=== PATIENT | male | born 1940 | race Caucasian/White ===

== ENCOUNTER 2017-02-09 08:08 | Emergency (ER) | payer OTHER ==
[~2017-02-09] VITALS: Wt 72.7 kg
[2017-02-09] MEDS ORDERED: SOD CHLORIDE 0.9% 1,000 ML IV STA (08:17)
[2017-02-09 08:45] LABS: ADD SCAN DIFF NO
[2017-02-09 08:48] LABS: ABNORMAL IP MESSAGE 1; BASOPHIL # 0.1 10^3/ul (0.0-0.1); BASOPHILS % 0.6 % (0.0-2.0); EOSINOPHILS # 0.5 10^3/ul (0.0-0.5); EOSINOPHILS % 3.6 % (0.0-7.0); HEMATOCRIT 33.1 % (42.0-52.0); LYMPHOCYTES # 0.9 10^3/ul (0.8-2.9); LYMPHOCYTES % 6.2 % (15.0-51.0); MEAN CORPUSCULAR HEMOGLOBIN 30.5 pg (29.0-33.0); MEAN CORPUSCULAR HGB CONC 33.2 g/dl (32.0-37.0); MEAN CORPUSCULAR VOLUME 91.7 fl (82.0-101.0); MEAN PLATELET VOLUME 9.4 fl (7.4-10.4); MONOCYTE # 1.8 10^3/ul (0.3-0.9); MONOCYTES % 12.7 % (0.0-11.0); NEUTROPHIL # 10.8 10^3/ul (1.6-7.5); NEUTROPHILS % 76.3 % (39.0-77.0); PLATELET COUNT 561 10^3/UL (140-415); RED BLOOD COUNT 3.61 10^6/ul (4.70-6.10); RED CELL DISTRIBUTION WIDTH 11.4 % (11.5-14.5); WHITE BLOOD COUNT 14.1 10^3/ul (4.8-10.8)
[2017-02-09 08:57] LABS: POTASSIUM 3.6 mmol/L (3.5-5.1)
[2017-02-09 08:59] LABS: CREATININE 1.69 mg/dl (0.61-1.24)
--- NOTE | 2017-02-09 09:06 | RADRPT ---
PROCEDURE: XR Chest. CLINICAL INDICATION: Syncope. TECHNIQUE: Single frontal view of the chest was obtained COMPARISON: No. FINDINGS: The soft tissues are normal. The bony elements are normal. The cardiomediastinal silhouette, pulmo nary vasculature and hilar structures are normal. There is a left-sided aorta. The lungs are clear. The costophrenic angles are normal. IMPRESSION: 1. Normal chest x-ray. RPTAT:AAJJ Physician Elliot Date Time Electronically viewed and signed by Jefferson Gardner Physician on 02/09/2017 09:06 /
--- NOTE | 2017-02-09 09:08 | RADRPT ---
PROCEDURE: XR left ribs . CLINICAL INDICATION: Syncope with chest pain. TECHNIQUE: AP and oblique views of the left ribs were obtained. COMPARISON: No. FINDINGS: The ribs are intact. No pulmonary contusion pneumothorax or hemothorax is identified. There are os teophytes in the thoracic spine and vascular calcifications in the aortic arch. The other bony [place] ents are unremarkable. Cone down views of the lower ribs were not performed. IMPRESSION: 1. No acute rib fracture, pulmonary contusion pneumothorax or hemothorax is identified. 2. Limited study as cone down views of the lower left ribs were not included in the exam. 3. Spondylosis of the thoracic spine. 4. Atherosclerotic vascular disease. RPTAT:AAJJ Physician Elliot Date Time Electronically viewed and signed by Physician Elliot on 02/09/2017 09:08 /
[2017-02-09 09:09] LABS: INR 1.12; PROTIME 14.4 Sec (12.2-14.2); PT RATIO 1.1
[2017-02-09 09:10] LABS: PARTIAL THROMBOPLASTIN TIME 31.2 Sec (25.0-35.0)
[2017-02-09 09:12] LABS: TROPONIN-I 0.031 ng/ml (0.00-0.12)
--- NOTE | 2017-02-09 09:43 | RADRPT ---
PROCEDURE: CT brain without contrast CLINICAL INDICATION: Syncope TECHNIQUE: CT of the brain without contrast performed on a multidetector CT scanner, with multiplan ar reformats. One or more of the following dose reduction techniques were used: Automated exposure control, adjustment in mA and / or kV according to patient size, use of iterative reconstructive roxy hnique. CTDIvol = 45 mGy; DLP = 720 mGy-cm. COMPARISON: None available FINDINGS: No acute intracranial hemorrhage is identified. No extra-axial fluid collection is seen. There is no mass effect. No midline shift is identified. Ventricles and sulci are mildly enlarged compatible with volume loss. There are mild areas of hypodensity in the periventricular - deep white matter which are nonspecific but suggestive of chronic small vessel ischemic changes. Jaquez-white differentiation is preserved. Atherosclerotic calcifications of the intracranial internal carotid arteries are noted. Osseous structures are unremarkable. Mastoid air cells and imaged paranasal sinuses grossly clear. IMPRESSION: 1. No acute intracranial pathology identified. 2. Mild volume loss, with mild chronic small vessel ischemic changes. RPTAT: VV .Edmar Bach MD, MD Date Time Electronically viewed and signed by .Edmar Bach MD, MD on 02/09/2017 09:43 .O/
[2017-02-09 09:58] LABS: ADD UMIC YES; URINE BILIRUBIN (Dip) 1+ (NEGATIVE); URINE BLOOD (Dip) TRACE (NEGATIVE); URINE COLOR YELLOW (YELLOW); URINE GLUCOSE (Dip) NEGATIVE (NEGATIVE); URINE KETONES (Dip) NEGATIVE (NEGATIVE); URINE LEUKOCYTE ESTERASE (Dip) NEGATIVE (NEGATIVE); URINE NITRITE (Dip) NEGATIVE (NEGATIVE); URINE TOTAL PROTEIN (Dip) 1+ (NEGATIVE); URINE UROBILINOGEN (Dip) 1.0 E.U./dL (0.1-1.0)
--- NOTE | 2017-02-09 10:13 | ERA ---
ER Documentation Chief Complaint Date/Time DATE: 02/09/17 TIME: 10:11 Chief Complaint bib als syncopal episode HPI Male with hypertension who presents with syncope. The patient says that he was making some coffee and then the next thing he knew he woke up on the floor. He does not remember what happened. He was brought in by ambulance. He has left- sided chest wall pain. His blood pressure was 90/50 by paramedics and his blood sugar was 158. Upon review of old medical records this is the patient's first visit to the emergency department. The patient is a [employer] member. ROS All systems reviewed and are negative except as per history of present illness. Medications Home Meds Reported Medications Lisinopril* (Lisinopril*) 5 Mg Tablet, 5 MG PO BID, #30 TAB 02/09/17 Hydrochlorothiazide* (Hydrochlorothiazide*) 25 Mg Tab, 25 MG PO DAILY, #30 TAB 02/09/17 Allergies Allergies: Coded Allergies: aspirin (Verified Allergy, Unknown, per pt. blood in stool, 02/09/17) PMhx/Soc Medical and Surgical Hx: pt denies Surgical Hx Hx Cardiac Disorders: Yes (htn) Hx Alcohol Use: No Hx Substance Use: No Hx Tobacco Use: No Smoking Status: Unknown if ever smoked FmHx Family History: No diabetes Physical Exam Vitals Vital Signs Date Time Temp Pulse Resp B/P Pulse Ox O2 Delivery O2 Flow Rate FiO2 02/09/17 11:25 98.0 84 20 104/58 99 Room Air 02/09/17 11:04 98.7 82 22 95/57 99 Room Air 02/09/17 10:21 99 Room Air 02/09/17 09:57 98.9 86 20 92/54 94 Room Air 02/09/17 08:35 98.0 93 21 95/64 97 Physical Exam Const: No acute distress Head: Atraumatic Eyes: Normal Conjunctiva ENT: Normal External Ears, Nose and Mouth. Neck: Full range of motion..~ No meningismus. Resp: Clear to auscultation bilaterally Cardio: Regular rate and rhythm, no murmurs, left-sided chest wall pain with palpation without crepitus noted Abd: Soft, non tender, non distended. Normal bowel sounds Skin: Pale Back: No midline or flank tenderness Ext: No cyanosis, or edema Neur: Awake and alert Psych: Normal Mood and Affect Result Diagram: 02/09/17 0830 02/09/17 0830 Results 24 hrs Laboratory Tests Test 02/09/17 08:30 02/09/17 09:40 Activated Partial Thromboplast Time 31.2Sec Anion Gap 16 Basophils # 0.110^3/ul Basophils % 0.6% Blood Urea Nitrogen 52mg/dl Calcium Level 9.0mg/dl Carbon Dioxide Level 29mmol/L Chloride Level 97mmol/L Creatinine 1.69mg/dl Eosinophils # 0.510^3/ul Eosinophils % 3.6% Glucose Level 138mg/dl Hematocrit 33.1% Hemoglobin 11.0g/dl INR International Normalized Ratio 1.12 Lymphocytes # 0.910^3/ul Lymphocytes % 6.2% Mean Corpuscular Hemoglobin 30.5pg Mean Corpuscular Hemoglobin Concent 33.2g/dl Mean Corpuscular Volume 91.7fl Mean Platelet Volume 9.4fl Monocytes # 1.810^3/ul Monocytes % 12.7% Neutrophils # 10.810^3/ul Neutrophils % 76.3% Nucleated Red Blood Cells # 0.010^3/ul Nucleated Red Blood Cells % 0.0/100WBC Platelet Count 93360^3/UL Potassium Level 3.6mmol/L Prothrombin Time 14.4Sec Prothrombin Time Ratio 1.1 Red Blood Count 3.6110^6/ul Red Cell Distribution Width 11.4% Sodium Level 138mmol/L Troponin I 0.031ng/ml White Blood Count 14.110^3/ul Urine Bacteria FEW Urine Bilirubin 1+ Urine Clarity CLEAR Urine Color YELLOW Urine Epithelial Cells FEW Urine Glucose NEGATIVE% Urine Hemoglobin TRACE Urine Ictotest NEGATIVE Urine Ketones NEGATIVE Urine Leukocyte Esterase NEGATIVE Urine Microscopic RBC 0-2/HPF Urine Microscopic WBC 0-2/HPF Urine Mucus FEW Urine Nitrite NEGATIVE Urine Specific [place] 1.020 Urine Total Protein 1+ Urine Urobilinogen 1.0 E.U./dL Urine pH 5.5 Current Medications Medications (Trade) Dose Ordered Sig/Benny Route PRN Reason Start Time Stop Time Status Last Admin Dose Admin Sodium Chloride (NS) 1,000 ml @ 1,000 mls/hr Q1H STAT IV 02/09/17 08:17 02/09/17 09:16 DC 02/09/17 08:41 Procedures/MDM EKG read by me: Rate/Rhythm: Regular rate and rhythm at a rate of 88 Intervals: Normal Impression: No evidence of ischemia or arrhythmia CT head negative for acute intra-cranial hemorrhage per radiology. Chest x-ray negative per radiology. Rib x-ray shows no acute fracture per radiology. Patient is a 76-year-old male presents with syncope. Given his age I am concerned about more serious causes of syncope such as ventricular arrhythmia. The patient has anemia with a hemoglobin of 11 but does not require transfusion. His BUN and creatinine ratio is greater than 20 showing dehydration and he was given 1 L of normal saline for fluid resuscitation. I believe he will need admission. He has [facility] insurance and I spoke with Dr. Krishnan from [facility] who is accepted the patient transfer. The patient be transferred by ambulance to a [facility] facility. The patient will be admitted to a telemetry bed. Observation Note: Time: 4 hours Family Hx: Negative for diabetes Evaluation: Multiple exams showed improving symptoms and no evidence of clinical decompensation. Departure Diagnosis: Primary Impression: ARF (acute renal failure) Qualified Code: N17.9 - Acute renal failure, unspecified acute renal failure type Additional Impressions: Anemia Qualified Code: D64.9 - Anemia, unspecified type Syncope Qualified Code: R55 - Syncope, unspecified syncope type Dehydration Condition: TOMMY Ervin MD Feb 09, 2017 10:13
[2017-02-09] MEDS ORDERED: LISI-313 PO (10:28)
[2017-02-09] MEDS ORDERED: HYD25 PO (10:28)
[2017-02-09 10:55] LABS: BACTERIA,URINE FEW; ICTOTEST NEGATIVE (NEGATIVE); MUCUS,URINE FEW; URINE RBCS 0-2 /HPF (0)
[2017-02-09 11:25] VITALS: BP 104/58; PULSE 84; RESP 20; TEMP 98
== END 2017-02-09 12:27 | disposition short-term general hospital (02) ==
LOC: E/R 08:08
DX: N17.9 Acute kidney failure, unspecified (principal); D64.9 Anemia, unspecified; E86.0 Dehydration; I10 Essential (primary) hypertension
CPT/HCPCS: 36415; 70450; 71010; 71100; 80048; 81001; 84484; 85025; 85610; 85730; 93005; 99285; J7030; 81003